=== PATIENT | female | born 1975 | race Hispanic/Latino ===

== ENCOUNTER 2018-05-26 07:42 | Emergency (ER) | payer BC ==
[2018-05-26 07:42] VITALS: BMI 21.7
[2018-05-26 08:01] VITALS: RESP 18; TEMP 97.8; O2SAT 99
[2018-05-26] MEDS ORDERED: Lidocaine 1%/Epinephrine 1:100000 30 ml vial IJ STA (08:03)
--- NOTE | 2018-05-26 08:08 | ED PDOC ---
Arrival/HPI - General Chief Complaint: Abnormal Skin Integrity Time Seen by Provider: 05/26/18 07:54 Historian: Patient - History of Present Illness Narrative History of Present Illness (Text): 05/26/18 08:05 A 42 year old female, whose past medical history includes ETOH abuse, presents to the emergency department for lacerations to her forehead and left knee s/p fall. The patient reports that she was walking when she suddenly tripped and fell onto some stairs. The patient landed on her left lower leg and face. She sustained lacerations to her left keane and forehead. The patient denies fevers, chills, headache, dizziness, syncope, LOC, chest pain, shortness of breath, dyspnea on exertion, cough, abdominal pain, nausea, vomiting, diarrhea, back pain, neck pain, urinary/bowel changes, or any other complaint. Time/Duration: Prior to Arrival Symptom Onset: Sudden Symptom Course: Unchanged Activities at Onset: Rest, Light Context: Walking, Home Past Medical History - Provider Review Nursing Documentation Reviewed: Yes - Infectious Disease Hx of Infectious Diseases: None - Tetanus Immunization Tetanus Immunization: Up to Date - Reproductive Currently : Unknown - Past Medical History Past Medical History: No Previous - Cardiac Hx Cardiac Disorders: No Hx Hypertension: No - Pulmonary Hx Tuberculosis: No - Neurological HX Cerebrovascular Accident: No Hx Seizures: No - HEENT Hx HEENT Disorder: No - Renal Hx Renal Disorder: No - Endocrine/Metabolic Hx Endocrine Disorders: No - Hematological/Oncological Hx Blood Disorders: No Hx Cancer: No - Integumentary Hx Dermatological Disorder: No - Musculoskeletal/Rheumatological Hx Musculoskeletal Disorders: No - Gastrointestinal Hx Gastrointestinal Disorders: No - Genitourinary/Gynecological Hx Sexually Transmitted Diseases: No - Psychiatric Hx Anxiety: Yes Hx Depression: No Hx Emotional Abuse: No Hx Physical Abuse: No Hx Substance Use: No - Past Surgical History Past Surgical History: Non-Contributing - Anesthesia Hx Anesthesia: No - Suicidal Assessment Feels Threatened In Home Enviroment: No Family/Social History - Physician Review Nursing Documentation Reviewed: Yes Family/Social History: No Known Family HX Smoking Status: Current Some Days Smoker Hx Alcohol Use: Yes Frequency of alcohol use: Few days per week Hx Substance Use: No Hx Substance Use Treatment: No Allergies/Home Meds Allergies/Adverse Reactions: Allergies No Known Allergies Allergy (Verified 05/26/18 07:44) Review of Systems - Physician Review All systems were reviewed & negative as marked: Yes - Review of Systems Constitutional: absent: Fevers Respiratory: absent: SOB, Cough Cardiovascular: absent: Chest Pain, NEAL Gastrointestinal: absent: Abdominal Pain, Stool Changes, Diarrhea, Nausea, Vomiting Genitourinary Female: absent: Urine Output Changes Skin: Laceration (Forehead and Left keane.) Neurological: absent: Headache, Dizziness Physical Exam Vital Signs Reviewed: Yes Vital Signs Temp Pulse Resp BP Pulse Ox 05/26/18 07:43 97.8 F 110 H 18 130/86 99 Temperature: Afebrile Blood Pressure: Normal Pulse: Tachycardic Respiratory Rate: Normal Appearance: Positive for: Well-Appearing, Non-Toxic, Comfortable Pain Distress: None Mental Status: Positive for: Alert and Oriented X 3 - Systems Exam Head: Present: Normocephalic, Laceration (2cm laceration to forehead.) Pupils: Present: PERRL Extroacular Muscles: Present: EOMI Conjunctiva: Present: Normal Mouth: Present: Moist Mucous Membranes Nose (External): Present: Other (Swelling to the bridge of her nose.) Neck: Present: Normal Range of Motion Respiratory/Chest: Present: Clear to Auscultation, Good Air Exchange. No: Respiratory Distress, Accessory Muscle Use Cardiovascular: Present: Regular Rate and Rhythm, Normal S1, S2. No: Murmurs Abdomen: No: Tenderness, Distention, Peritoneal Signs Back: Present: Normal Inspection Upper Extremity: Present: Normal Inspection. No: Cyanosis, Edema Lower Extremity: Present: Other (3 cm laceration to left lower leg. ). No: Edema Neurological: Present: GCS=15, CN II-XII Intact, Speech Normal Skin: Present: Warm, Dry, Normal Color. No: Rashes Psychiatric: Present: Alert, Oriented x 3, Normal Insight, Normal Concentration Medical Decision Making ED Course and Treatment: 05/26/18 08:09 Impression: A 42 year old female presents to the emergency department with a complaint of lacerations to her forehead and left lower leg s/p fall. Plan: -- Head CT -- Left Tibia Fibula X- Ray -- Tylenol and Lidocaine -- Reassess and disposition Progress Notes: 05/26/18 10:01 PROCEDURE: LACERATION REPAIR Performed by the emergency provider Location: Left keane Length: 3 cm Description: clean wound edges, no foreign bodies Distal CMS: Normal. No deficits. Neurovascularly intact. Anesthesia: Lidocaine 1% Preparation: The wound was cleaned with NS and Betadyne. The area was prepped and draped in the usual sterile fashion. Exploration: The wound was explored and no foreign bodies were found. Procedure: The wound was closed with 4-O nylon. There was good approximation. In total, 12 stitches were used. Post-Procedure: Good closure and hemostasis. The patient tolerated the procedure well and there were no complications. CSM remains intact. Post procedure dressing applied. PROCEDURE: LACERATION REPAIR Performed by the emergency provider Location: Forehead Length: 2 cm Description: clean wound edges, no foreign bodies Distal CMS: Normal. No deficits. Neurovascularly intact. Preparation: The wound was cleaned with NS and Betadyne. The area was prepped and draped in the usual sterile fashion. Exploration: The wound was explored and no foreign bodies were found. Procedure: The wound was closed with DermaBond. Post-Procedure: Good closure and hemostasis. The patient tolerated the procedure well and there were no complications. CSM remains intact. Post procedure dressing applied. PROCEDURE: Radiographs of the left tibia and fibula. Dictator : Foster Beckett MD Report Date : 05/26/2018 09:48:12 IMPRESSION: No evidence of acute displaced fracture nor dislocation. Soft tissues refraction/laceration and a small amount of subcutaneous air involving the pretibial soft tissues just below the tibial tubercle with a small amount of subcutaneous air PROCEDURE: CT HEAD WITHOUT CONTRAST. Dictator : Foster Beckett MD Report Date : 05/26/2018 10:06:26 IMPRESSION: No acute intracranial hemorrhage. Mild mid and left frontal scalp contusion.. Apparent incompletely visualized comminuted right nasal bone fracture and fracture of the anterior nasal septum. There is overlying soft tissue swelling as above. Questionable laceration. 05/26/18 10:17 Patient is in no acute distress. I have discussed the results and plan with the patient, who expresses understanding. Patient in agreement with plan to be discharged home. Patient is stable for discharge. Patient was instructed to follow up with physician or return if symptoms worsen or new concerning symptoms arise. clincial nasal fracture appreciated given ent f/u will given prophalaxic antibiotics given fall on "dirty stairs" as per family. 05/26/18 21:48 05/26/18 21:51 12 4-0 nylon in leg, dermabdon to face - RAD Interpretation Radiology Orders: 05/26/18 08:02 HEAD W/O CONTRAST [CT] Stat 05/26/18 08:03 TIBIA FIBULA LEFT [RAD] Stat - Medication Orders Current Medication Orders: Acetaminophen (Tylenol 325mg Tab) 975 mg PO STAT STA Stop: 05/26/18 08:04 Lidocaine/Epinephrine (Lidocaine 1%/Epinephrine 1:598741 30 Ml) 10 ml IJ STAT STA Stop: 05/26/18 08:04 Procedure: Wound Repair - Time Performed Time Performed: 21:51 - Time Out Time Out: Side verified - Performed by Performed by: Attending Physician - Indications Indication(s):: Laceration - Location Location:: Leg - Anesthetic Technique Anesthetic Technique: Local Local/Regional Anesthetic:: Lidocaine 1% w/epi - Wound Examination Wound Examination:: Contaminated, Vascular Injury - Debris Debris:: None - Irrigated Irrigated with ml of normal saline: 100 - Complexity Complexity:: Simple (one layer) - Patient tolerated procedure Patient Tolerated Procedure:: Well - Scribe Statement The provider has reviewed the documentation as recorded by the Scribe Melba Logan Provider Scribe Attestation: All medical record entries made by the Scribe were at my direction and personally dictated by me. I have reviewed the chart and agree that the record accurately reflects my personal performance of the history, physical exam, medical decision making, and the department course for this patient. I have also personally directed, reviewed, and agree with the discharge instructions and disposition. Disposition/Present on Arrival - Present on Arrival Any Indicators Present on Arrival: No History of DVT/PE: No History of Uncontrolled Diabetes: No Urinary Catheter: No History of Decub. Ulcer: No History Surgical Site Infection Following: None - Disposition Have Diagnosis and Disposition been Completed?: Yes Diagnosis: Fall, Head injury, Laceration of forehead, Laceration of leg Disposition: HOME/ ROUTINE Disposition Time: 10:30 Condition: STABLE Discharge Instructions (ExitCare): Concussion in Adults, Laceration Repair With Glue (DC), Wound Care (DC), Closed Head Injury (DC), Laceration Repair With Stitches (DC), Preventing Falls, Minor Head Injury (DC) Additional Instructions: return to er with worsening symptoms or concerns. follow up with your doctor/er in 10 days for removal, return immediately with any worsening Prescriptions: Cephalexin [cephalexin] 500 mg PO BID #14 cap Forms: Droplet (Bulgarian)
--- NOTE | 2018-05-26 09:51 | RAD ---
Date of service: 05/26/2018 PROCEDURE: Radiographs of the left tibia and fibula. HISTORY: trauma COMPARISON: None available. TECHNIQUE: Frontal and lateral views obtained. FINDINGS: BONES: No evidence of acute displaced fracture nor dislocation. JOINT SPACES: Unremarkable. OTHER FINDINGS: There appears to be laceration/soft tissue disruption with a small amount subcutaneous air involving the upper pretibial soft tissues just below the level of the tibial tubercle. IMPRESSION: No evidence of acute displaced fracture nor dislocation. Soft tissues refraction/laceration and a small amount of subcutaneous air involving the pretibial soft tissues just below the tibial tubercle with a small amount of subcutaneous air
--- NOTE | 2018-05-26 10:15 | CT ---
Date of service: 05/26/2018 PROCEDURE: CT HEAD WITHOUT CONTRAST. HISTORY: Trauma COMPARISON: Comparison made with CT scan of the brain 10/22/[address] scan maxillofacial skeleton 1023 2013 is the TECHNIQUE: Axial computed tomography images were obtained through the head/brain without intravenous contrast. Radiation dose: Total exam DLP = 837.68 mGy-cm. This CT exam was performed using one or more of the following dose reduction techniques: Automated exposure control, adjustment of the mA and/or kV according to patient size, and/or use of iterative reconstruction technique. FINDINGS: HEMORRHAGE: No acute parenchymal, subarachnoid or extra-axial hemorrhage. BRAIN: No mass effect or edema. No atrophy or chronic microvascular ischemic changes. VENTRICLES: No obstructive hydrocephalus. CALVARIUM: There are no acute calvarial fractures. Mild left and mid frontal scalp contusion.. There are incompletely visualized apparent comminuted right-sided nasal bone fracture and apparent fracture of the anterior nasal septum. There is mild soft tissue swelling overlying the nasal bones and extending superiorly to the level of the bridge of the nose.. Questionable laceration. PARANASAL SINUSES: Unremarkable as visualized. No significant inflammatory changes. MASTOID AIR CELLS: Unremarkable as visualized. No inflammatory changes. OTHER FINDINGS: None. IMPRESSION: No acute intracranial hemorrhage. Mild mid and left frontal scalp contusion.. Apparent incompletely visualized comminuted right nasal bone fracture and fracture of the anterior nasal septum. There is overlying soft tissue swelling as above. Questionable laceration.
[2018-05-26] MEDS ORDERED: TDAP Vaccine 0.5 mL Syr IM ONE (10:17)
[2018-05-26 10:40] VITALS: BP 128/80; PULSE 92
== END 2018-05-26 10:41 | disposition home or self-care (01) ==
LOC: ED 07:42
DX: S01.81XA Laceration without foreign body of other part of head, initial encounter (principal); S81.812A Laceration without foreign body, left lower leg, initial encounter; S09.90XA Unspecified injury of head, initial encounter; W10.9XXA Fall (on) (from) unspecified stairs and steps, initial encounter; Y93.01 Activity, walking, marching and hiking; Z23 Encounter for immunization

== ENCOUNTER 2018-06-06 06:19 | Emergency (ER) | payer BC ==
[2018-06-06 06:20] VITALS: BMI 21.7
[2018-06-06 06:31] VITALS: BP 126/81; PULSE 101; RESP 18; TEMP 97.6; O2SAT 100
[2018-06-06] MEDS ORDERED: Bacitracin 500 Units/gm Oint Foilpak UD ONE (06:46)
--- NOTE | 2018-06-06 06:55 | ED PDOC ---
Arrival/HPI - General Chief Complaint: Suture/Staple Removal Time Seen by Provider: 06/06/18 06:33 - History of Present Illness Narrative History of Present Illness (Text): 06/06/18 06:49 42 y/o F s/p previous mechanical fall presenting to the Emergency Room for suture removal. The patient states she fell on her stairs on May 26, 2018 and sustained a large linear knee laceration requiring suture and was advised to report in 10 days for wound reevaluation and suture removal. She denies any purulent discharge, erythema, or wound dehiscence within the interim of having the suture placed until now. PCP: Dr. Thomas Time/Duration: > week Symptom Onset: Sudden Symptom Course: Resolved Activities at Onset: Rest Context: Home Past Medical History - Provider Review Nursing Documentation Reviewed: Yes - Travel History Have you recently traveled outside [place] w/in the past 3 mons?: No - Infectious Disease Hx of Infectious Diseases: None - Tetanus Immunization Tetanus Immunization: Up to Date - Reproductive Currently : No - Past Medical History Past Medical History: No Previous - Cardiac Hx Cardiac Disorders: No Hx Hypertension: No - Pulmonary Hx Tuberculosis: No - Neurological HX Cerebrovascular Accident: No Hx Seizures: No - HEENT Hx HEENT Disorder: No - Renal Hx Renal Disorder: No - Endocrine/Metabolic Hx Endocrine Disorders: No - Hematological/Oncological Hx Blood Disorders: No Hx Cancer: No - Integumentary Hx Dermatological Disorder: No - Musculoskeletal/Rheumatological Hx Musculoskeletal Disorders: No - Gastrointestinal Hx Gastrointestinal Disorders: No - Genitourinary/Gynecological Hx Sexually Transmitted Diseases: No - Psychiatric Hx Anxiety: Yes Hx Depression: No Hx Emotional Abuse: No Hx Physical Abuse: No Hx Substance Use: No - Past Surgical History Past Surgical History: Non-Contributing - Anesthesia Hx Anesthesia: No - Suicidal Assessment Feels Threatened In Home Enviroment: No Family/Social History - Physician Review Nursing Documentation Reviewed: Yes Family/Social History: Unknown Family HX Smoking Status: Current Some Days Smoker Hx Alcohol Use: Yes Hx Substance Use: No Hx Substance Use Treatment: No Allergies/Home Meds Allergies/Adverse Reactions: Allergies No Known Allergies Allergy (Verified 05/26/18 07:44) Review of Systems - Physician Review All systems were reviewed & negative as marked: Yes - Review of Systems Skin: Laceration Physical Exam Vital Signs Reviewed: Yes Vital Signs Temp Pulse Resp BP Pulse Ox 06/06/18 06:30 97.6 F 101 H 18 126/81 100 Temperature: Afebrile Blood Pressure: Normal Pulse: Tachycardic Respiratory Rate: Normal Appearance: Positive for: Well-Appearing, Non-Toxic, Comfortable Mental Status: Positive for: Alert and Oriented X 3 - Systems Exam Head: Present: Atraumatic, Normocephalic Pupils: Present: PERRL Extroacular Muscles: Present: EOMI Conjunctiva: Present: Normal Mouth: Present: Moist Mucous Membranes Lower Extremity: Present: Normal Inspection, Capillary Refill < 2 s, Other (Healed laceration under L knee). No: Tenderness, Erythema, Deformity Neurological: Present: GCS=15, Speech Normal Skin: Present: Warm, Dry, Normal Color, Laceration (Healed laceration noted to L knee) Psychiatric: Present: Alert, Oriented x 3, Normal Insight, Normal Concentration Medical Decision Making ED Course and Treatment: 06/06/18 06:57 Impression 42F presenting to Emergency Room for suture removal Plan --Suture Removal --Wound dressing --Reassessment & disposition Progress Notes 06/06/18 06:58 Sutures removed without difficulty revealing healed granulation tissue and coapted wound borders with no evidence of purulence. Patient advised to continue wound care at home. She demonstrates understanding and will follow up with her PCP. She is stable for discharge. Disposition/Present on Arrival - Present on Arrival Any Indicators Present on Arrival: No History of DVT/PE: No History of Uncontrolled Diabetes: No Urinary Catheter: No History of Decub. Ulcer: No History Surgical Site Infection Following: None - Disposition Have Diagnosis and Disposition been Completed?: Yes Diagnosis: Encounter for removal of sutures Disposition: HOME/ ROUTINE Disposition Time: 06:49 Patient Plan: Discharge Condition: STABLE Discharge Instructions (ExitCare): Stitches Removal Print Language: JAPANESE Referrals: Rony Thomas MD [Primary Care Provider] - Follow up with primary
== END 2018-06-06 06:55 | disposition home or self-care (01) ==
LOC: ED 06:19
DX: Z48.02 Encounter for removal of sutures (principal)